=== PATIENT | male | born 1980 | race African-American/Black ===

== ENCOUNTER 2021-06-09 15:17 | Emergency (ER) | payer OTHER ==
[~2021-06-09] VITALS: Ht 177.8 cm; Wt 90.0 kg
[2021-06-09] MEDS ORDERED: IBUPROFEN600 MG PO (16:50)
[2021-06-09 16:53] VITALS: BP 132/72
== END 2021-06-09 17:07 | disposition home or self-care (01) | DRG 563 ==
LOC: ED 15:17
DX: S83.92XA Sprain of unspecified site of left knee, initial encounter (principal); X50.0XXA Overexertion from strenuous movement or load, initial encounter
CPT/HCPCS: L1830

== ENCOUNTER 2022-02-21 18:54 | Emergency (ER) | payer OTHER, BC ==
[~2022-02-21] VITALS: Ht 177.8 cm; Wt 96.0 kg
[~2022-02-21 18:54] MED LIST: IBUPROFEN600 MG PO
[2022-02-21 19:28] VITALS: BP 113/78
== END 2022-02-22 00:30 | disposition home or self-care (01) | DRG 918 ==
LOC: ED 18:54
DX: T54.3X1A Toxic effect of corrosive alkalis and alkali-like substances, accidental (unintentional), initial encounter (principal); T23.562A Corrosion of first degree of back of left hand, initial encounter; T23.552A Corrosion of first degree of left palm, initial encounter; Y93.89 Activity, other specified; Y92.69 Other specified industrial and construction area as the place of occurrence of the external cause; Y99.0 Civilian activity done for income or pay